=== PATIENT | female | born 1955 | race Caucasian/White ===

== ENCOUNTER → 2018-06-24 | Day surgery (SDC) | payer OTHER ==
[~2018-06-24] MED LIST: ALLERGY PO; FENTANYL CITRATE/PF 100MCG/2 ML INJ ONE; HYOSCYAMINE SULFATE 0.5 MG/ML INJ ONE; LEVOTHYROXINE50 MCG PO; LIDOCAINE HCL 2% LOCAL INJ 5 ML SDV VIAL INJ ONE; MIDAZOLAM HCL 2 MG/2 ML VIAL ONE; PROPOFOL IV EMULSION 10 MG/ML 50 ML VIAL ONE; WELLBUTRIN SR150 MG PO; WOMEN'S ONE DA1 EACH PO
--- OUTSIDE RECORDS SUMMARY | 2018-06-24 06:43 | XMS REPORT | Continuity of Care Document ---
Author Author [facility] Address [address] [place] [address] ;ext= Care Team Providers Care Water Resource Agent Name Role Phone DR Concepción SOMMERS Admdebbie DR Concepción SOMMERS [facility] Admission Diagnosis Code Admission Diagnosis Date ENCOUNTER FOR SCREENING MAMMOGRAM FOR MALIGNANT NEOPLASM OF BREAST Social History Element Description Code Description Smoking Status Code System Start Date End Date Smoking Status [id number] Never smoker SNOMED-CT Problems * No data in the system Medications SNOMED CT Description [id number] Drug Treatment Unknown Allergies * No Allergy Data in the System Results Radiology Results Order: [id number] MM MAMMO SCRN 3D ELVIA* Exam Completion Date:04/17/2018 15:00 * Outcome:* Code: 1-Negative Procedure: MM MAMMO SCRN 3D TOMOExam Date: 04/17/2018 3:00 PMOrdering Provide r: DR YOUNG SOMMERSClinical Indication: Digital screening mammography.Compar antonio: None availableTechnique: 3-D tomosynthesis views of both breasts were obta ined. The study isinterpreted using computer-aided detection (CAD).Findings:Ther e are scattered fibroglandular densities in each breast.There are no suspicious masses in either breast.There are no suspicious calcifications in either breast. There are no pathologic skin or nipple alterations.Impression:1. No mammographic evidence of malignancy.2. Recommend annual mammographic followup.3. Patient is entered into a reminder system with a target due date for the nextmammogram in o ne year.BIRADS Result 1: Negative.This final report was electronically signed b y Dr Raymond Topete MD 04/17/20184:38 PMDictated By: RAYMOND TOPETEDate: 04/05 16:45 Vital Signs * No data in the system Plan of Care * No data in the system Procedures Code Code System Procedure Name Target Site Date of Procedure MM MAMMO SCRN 3D ELVIA 04/17/2018 16:45 Encounters Date Code Diagnosis Status (ICD10) - Z1231 ENC SCR MAMMO MALIG NEOPLASM BREAST Active Immunizations * No data in the system Functional Status * No data in the system Hospital Discharge Instructions * No data in the system
--- OUTSIDE RECORDS SUMMARY | 2018-06-24 06:43 | XMS REPORT ---
Author Author [facility] Address Unknown Phone Unavailable Care Team Providers Care Supervisor [employer] Name Role Phone DR Concepción SOMMERS Unavailable Unavailable Problems This patient has no known problems. Allergies, Adverse Reactions, Alerts This patient has no known allergies or adverse reactions. Medications This patient has no known medications. Results Test Description Test Time Test Comments Text Results Atomic Results Result Comments MM MAMMO SCRN 3D ELVIA 2018-04-17 16:45:15 Procedure: MM MAMMO SCRN 3D TOMOExam Date: 04/17/2018 3:00 PMOrdering Provider: DR YOUNG SOMMERSClinical Indication: Digital screening mammography.Comparison: None availableTechnique: 3-D tomosynthesis views of both breasts were obtained. The study isinterpreted using computer-aided detection (CAD).Findings:There are scattered fibroglandular densities in each breast.There are no suspicious masses in either breast.There are no suspicious calcifications in either breast.There are no pathologic skin or nipple alterations.Impression:1. No mammographic evidence of malignancy.2. Recommend annual mammographic followup.3. Patient is entered into a reminder system with a target due date for the nextmammogram in one year.BIRADS Result 1: Negative.This final report was electronically signed by Dr Raymond Marin MD 04/17/20184:38 PMDictated By: RAYMOND MARINDate: 04/17/2018 16:45
--- OUTSIDE RECORDS SUMMARY | 2018-06-24 06:43 | XMS REPORT ---
Author Author Diane Simpson [facility] eClinical[employer] Address Unknown Phone Unavailable Care Team Providers Care Loom Blower Name Role Phone Diane Simpson CP Unavailable Allergies, Adverse Reactions, Alerts Substance Reaction Event Type Levaquin liver problem Drug Allergy Problems Problem Type Condition Code Onset Dates Condition Status Assessment Well woman exam Z01.419 Active Problem Well woman exam Z01.419 Active Medications Medication Code System Code Instructions Start Date End Date Status Dosage Levothyroxine Sodium [facility] [id number] 25 MCG Orally Once a day Active 1 tablet on an empty stomach in the morning Results No Known Results Summary Purpose eClinicalWorks Submission
--- NOTE | 2018-06-24 10:52 | Operative Report ---
DATE OF PROCEDURE: June 24, 2018 REFERRING PHYSICIAN: Dr. Aniyah Rodney. PROCEDURE PERFORMED: Colonoscopy and polypectomy with biopsies. INDICATIONS FOR COLONOSCOPY: Surveillance colonoscopy, personal history of colon polyps. MEDICATION: Patient was done under MAC. Please see anesthesiologist's note. PROCEDURE: With the patient in left lateral decubitus position, a flexible fiberoptic Olympus colonoscope was inserted into the rectum with ease and advanced all the way to the cecum. Mucosa overlying the cecum appeared to be within normal limits. The ileocecal valve was intubated, and the scope was advanced into the terminal ileum. There was some patchy prominent nodularity noted in the terminal ileum, and biopsies were obtained. The scope was then withdrawn back into the colon. It was then withdrawn slowly. Mucosa overlying the ascending appeared to be within normal limits. There was a prominent fold noted in the distal transverse colon and that was partially resected per snare electrocautery. One polyp was snared from the descending colon. The rest of the descending, sigmoid, and rectum appeared to be within normal limits. The scope was then retroflexed into the distal rectum and small internal hemorrhoids were noted, none of which was actively bleeding. The scope was then straightened out. It was subsequently withdrawn. Patient tolerated the procedure well. IMPRESSION 1. Patchy nodularity, terminal ileum, biopsied. 2. Prominent fold, distal transverse colon, partially resected per snare electrocautery. 3. Descending colon polyp, snared. 4. Internal hemorrhoids, none actively bleeding. PLAN: Follow up histology. Initiate high-fiber, low-fat diet. Initiate high-fiber supplement. Timing of followup colonoscopy pending pathology report. Job#: [id number] LPA cc:DR. ANIYAH RODNEY
== END | disposition home or self-care (01) ==
LOC: OR 06:26
PROVIDERS: ATTEND Internal Medicine Gastroenterology
DX: Z12.11 Encounter for screening for malignant neoplasm of colon (principal); Z86.010 Personal history of colon polyps; E03.9 Hypothyroidism, unspecified; Z88.1 Allergy status to other antibiotic agents; Z88.0 Allergy status to penicillin; K63.5 Polyp of colon; K64.8 Other hemorrhoids; K55.20 Angiodysplasia of colon without hemorrhage; Z01.810 Encounter for preprocedural cardiovascular examination
CPT/HCPCS: 45385; 93005; J1980; J2001; J2250

== ENCOUNTER → 2018-08-05 | Day surgery (SDC) | payer OTHER ==
--- NOTE | 2018-08-05 21:56 | Operative Report ---
DATE OF PROCEDURE: August 05, 2018 REFERRING PHYSICIAN: Dr. Hebert Rodney. PROCEDURE: Colonoscopy with polypectomy. INDICATIONS FOR COLONOSCOPY: History of angiodysplastic fold, transverse colon, partially resected on previous colonoscopy, in for removal of any residual polypoid tissue. MEDICATION: Patient was done under MAC. Please see anesthesiologist's note. PROCEDURE: With the patient in left lateral decubitus position, flexible fiberoptic Olympus colonoscope was inserted into the rectum with ease and advanced all the way to the cecum. An approximately 4-mm polyp was noted in the cecum that was snared. The rest of the ascending appeared to be within normal limits. The previously described fold could not be delineated, possibly the residual tissue has sloughed off. The descending sigmoid and rectum grossly appeared to be within normal limits. The scope was then retroflexed into the distal rectum and small internal hemorrhoids were noted; none of which is actively bleeding. The scope was then straightened out and was subsequently withdrawn. Patient tolerated the procedure well. IMPRESSION 1. Cecal polyp approximately 4 mm in size, snared. 2. Please described fold, not delineated, probably residual tissue already sloughed off. 3. Internal hemorrhoids, none actively bleeding. PLAN: Initiate high-fiber, low-fat diet. Initiate high-fiber supplement. Patient might benefit from a followup colonoscopy in 3 years. Job#: [id number] RTY cc:Hebert Rodney MD
== END | disposition home or self-care (01) ==
LOC: OR 09:39
PROVIDERS: ATTEND Internal Medicine Gastroenterology
DX: Z09 Encounter for follow-up examination after completed treatment for conditions other than malignant neoplasm (principal); C18.4 Malignant neoplasm of transverse colon; K63.5 Polyp of colon; K64.8 Other hemorrhoids; E03.9 Hypothyroidism, unspecified; Z88.1 Allergy status to other antibiotic agents; Z88.0 Allergy status to penicillin; Z68.30 Body mass index [BMI] 30.0-30.9, adult; Z80.0 Family history of malignant neoplasm of digestive organs
CPT/HCPCS: 45385; J1980; J2001; J2250; 45378; 45384